=== PATIENT | female | born 1985 | race Caucasian/White ===

== ENCOUNTER 2019-06-26 20:56 | Inpatient (IN) ==
[2019-06-26] MEDS ORDERED: LACTATED RINGERS 1,000 ML IV PRN (21:35)
[2019-06-26] MEDS ORDERED: BUTORPHANOL 2 MG/ML VIAL IV PRN (21:35)
[2019-06-26] MEDS ORDERED: ONDANSETRON 4 MG/2 ML VIAL IV PRN (21:35)
[2019-06-26] MEDS ORDERED: OXYTOCIN/LR 20 UNIT/1,000 ML BAG IV PRN (21:35)
[2019-06-26 21:54] LABS: Basophils # 0.1 10*3/uL (0.0-0.2); Basophils % 0.4 % (0.0-0.8); Eosinophils % 0.2 % (0.00-10.9); Hematocrit 36.1 VOL% (35.7-47.0); Immature Granulocytes % 1.1 %; Immature Granulocytes Absolute 0.13 #; Lymphocytes # 3.3 10*3/uL (1.4-4.0); Lymphocytes % 26.6 % (21.3-54.2); Mean Corpuscular HGB Conc 33.2 GM/DL (32-36); Mean Corpuscular Volume 89.6 FL (87-102); Mean Platelet Volume 10.3 FL (9.6-12.0); Monocytes % 8.8 % (1.7-12.7); Neutrophils % 62.9 % (38.7-73.9); Platelet Count 199 T/CUMM (130-400); Red Blood Count 4.03 MC/CUMM (3.8-5.5); Red Cell Distribution Width 13.7 % (9.3-17.3); White Blood Count 12.4 T/CUMM (4-12)
[2019-06-26 22:03] LABS: INR 0.9; PT Patient Result 9.4 SECS (9.6-12.2); Partial Thromboplastin Time 24.9 SECS (20.8-36.0)
[2019-06-26 22:12] LABS: Alanine Aminotransferase 12 U/L (13-56); Albumin 2.5 G/DL (3.4-5.0); Alkaline Phosphatase 134 U/L (45-117); Aspartate Amino Transferase 11 U/L (0-37); Bilirubin,Direct < 0.100 MG/DL (0.0-0.20); Bilirubin,Total < 0.39 MG/DL (0.2-1.0); Blood Urea Nitrogen 11 MG/DL (7-18); Calcium 9.6 MG/DL (8.5-10.1); Estimated Glom Filtration Rate 127 ML/MIN; Glucose 104 MG/DL (74-106); Osmolality,Calculated 279.3 MOS/KG (273-304); Total Protein 6.3 G/DL (6.4-8.3); Uric Acid 5.6 MG/DL (2.6-6.0)
[2019-06-26] MEDS ORDERED: FAMOTIDINE 20 MG TABLET PO SCH (22:19)
[2019-06-27] MEDS: AMPICILLIN INJ 2,000 MG in SODIUM CHLORIDE 0.9% 100 ML IV SCH ×4 (01:33→21:13)
[2019-06-27] MEDS ORDERED: BUTORPHANOL 1 MG/ML VIAL IV PRN (15:56)
[2019-06-27] MEDS ORDERED: FAMOTIDINE 20 MG/2 ML VIAL IV ONE ×2 (18:12→18:30)
[2019-06-27] MEDS ORDERED: ePHEDrine 50 MG/ML AMP IV PRN (18:12)
[2019-06-27] MEDS ORDERED: LACTATED RINGERS 1,000 ML IV ONE (18:12)
[2019-06-27] MEDS ORDERED: CITRIC ACID/SODIUM CITRATE 30 ML UDCUP PO ONE (18:12)
[2019-06-27] MEDS ORDERED: NALOXONE 0.4 MG/ML VIAL IV PRN (18:13)
[2019-06-27] MEDS ORDERED: hydrOXYzine HCL 25 MG/1 ML VIAL IM PRN (18:13)
[2019-06-27] MEDS ORDERED: PROMETHAZINE 25 MG/1 ML VIAL IM ONE (18:13)
[2019-06-27] MEDS ORDERED: diphenhydrAMINE 50 MG/1 ML VIAL IV PRN ×2 (18:13)
[2019-06-27] MEDS ORDERED: fentaNYL 2 MCG/ROPIV 0.2% EPID 100 ML EPIDURAL SCH (18:30)
[2019-06-27] MEDS: MONTELUKAST 10 MG TABLET PO SCH (19:34)
[2019-06-27 21:59] LABS: Apearance,Urine CLEAR (Clear); Bacteria,Urine Occasional /HPF (Few); Bilirubin,Urine Negative (Negative); Blood, Urine Small mg/dL (Negative); Glucose,Urine (UA) Negative (Negative); Ketones,Urine Negative (Negative); Nitrite,Urine Negative (Negative); Protein,Urine 30 MG/DL; RBC,Urine 1 /HPF (0-4); Urine Color Yellow (Yellow); Urine Specific Gravity 1.006 (1.001-1.035); Urine Urobilinogen < 2.0 EU/DL (0.2-1.0); WBC,Urine <1 /HPF (0-6)
[2019-06-28] MEDS: AMPICILLIN INJ 2,000 MG in SODIUM CHLORIDE 0.9% 100 ML IV SCH ×2 (01:32→07:07)
[2019-06-28] MEDS ORDERED: OXYTOCIN/LR 20 UNIT/1,000 ML BAG IV ONE ×2 (04:57→08:53)
[2019-06-28] MEDS ORDERED: TRANEXAMIC ACID 1,000 MG/10 ML VIAL ONE (04:57)
[2019-06-28] MEDS ORDERED: miSOPROStoL 200 MCG TABLET ONE (04:57)
[2019-06-28] MEDS ORDERED: METHYLERGONOVINE 0.2 MG/1 ML AMP ONE (04:58)
[2019-06-28] MEDS ORDERED: CARBOPROST TROMETHAMINE 250 MCG/ML AMP IM ONE (04:58)
[2019-06-28] MEDS ORDERED: LIDOCAINE 1% 50 ML VIAL ONE (04:59)
[2019-06-28] MEDS ORDERED: ACETAMINOPHEN 325 MG TABLET PO PRN (08:53)
[2019-06-28] MEDS ORDERED: BENZOCAINE 20%/MENTHOL 0.5% SPRAY 56 GM CAN TOP PRN (08:53)
[2019-06-28] MEDS ORDERED: WITCH HAZEL PADS 100/JAR TOP PRN (08:53)
[2019-06-28] MEDS ORDERED: MEASLES/MUMPS/RUBELLA VACCINE 0.5 ML VIAL SUBCUT ONE (08:53)
[2019-06-28] MEDS ORDERED: DIPH/TET/ACEL PERT BOOSTER VACCINE 0.5 ML VIAL IM ONE (08:53)
[2019-06-28] MEDS ORDERED: IBUPROFEN 800 MG TABLET PO PRN (08:53)
[2019-06-28] MEDS ORDERED: RHO(D) IMMUNE GLOBULIN 300 MCG SYRINGE IM ONE (08:53)
[2019-06-28] MEDS ORDERED: oxyCODONE/ACETAMINOPHEN 5-325 MG TABLET PO PRN ×2 (08:53)
[2019-06-28] MEDS ORDERED: BISACODYL 10 MG SUPP RECTAL PRN (08:53)
[2019-06-28] MEDS ORDERED: LANOLIN 50% CREAM 0.3 OZ TUBE TOP PRN (08:53)
[2019-06-28] MEDS ORDERED: ONDANSETRON 4 MG/2 ML VIAL IV PRN (08:53)
[2019-06-28] MEDS ORDERED: HYDROCORTISONE 2.5% RECTAL CREAM 30 GM TUBE TOP PRN (08:53)
[2019-06-28] MEDS ORDERED: PANTOPRAZOLE 40 MG TABLET PO SCH (19:36)
[2019-06-28] MEDS ORDERED: CETIRIZINE 10 MG TABLET PO SCH (19:37)
[2019-06-28] MEDS: DOCUSATE SODIUM 100 MG CAPSULE PO SCH ×2 (19:52→21:36)
[2019-06-28] MEDS: MONTELUKAST 10 MG TABLET PO SCH (21:37)
[2019-06-29 04:43] LABS: Basophils % 0.2 % (0.0-0.8); Eosinophils # 0.1 10*3/uL (0.0-0.87); Eosinophils % 0.6 % (0.00-10.9); Hematocrit 30.8 VOL% (35.7-47.0); Hemoglobin 10.1 GM/DL (12.0-16.0); Immature Granulocytes % 0.9 %; Immature Granulocytes Absolute 0.11 #; Lymphocytes # 3.6 10*3/uL (1.4-4.0); Lymphocytes % 28.9 % (21.3-54.2); Mean Corpuscular HGB Conc 32.8 GM/DL (32-36); Mean Corpuscular Volume 91.9 FL (87-102); Mean Platelet Volume 10.7 FL (9.6-12.0); Neutrophils % 59.4 % (38.7-73.9); Platelet Count 158 T/CUMM (130-400); Red Blood Count 3.35 MC/CUMM (3.8-5.5); White Blood Count 12.4 T/CUMM (4-12)
[2019-06-29 07:37] VITALS: BP 139/75
[2019-06-29] MEDS: DOCUSATE SODIUM 100 MG CAPSULE PO SCH (08:52)
[2019-06-29] MEDS ORDERED: CETIRIZINE 10 MG TABLET PO SCH (21:00)
[2019-06-29] MEDS ORDERED: MONTELUKAST 10 MG TABLET PO SCH (21:00)
[2019-06-29] MEDS ORDERED: PANTOPRAZOLE 40 MG TABLET PO SCH (21:00)
== END 2019-06-29 16:35 | disposition home or self-care (01) | DRG 807 ==
LOC: N.LD 20:56 → N.OB 06-28 11:59
PROVIDERS: ADMIT Specialist; ATTEND Specialist